=== PATIENT | female | born 1950 | race American Indian/Alaskan Native ===

== ENCOUNTER 2017-01-13 11:57 | Outpatient (CLI) | payer MEDICARE, OTHER ==
--- NOTE | 2017-01-16 08:23 | Mammography Report ---
BILATERAL DIGITAL SCREENING MAMMOGRAM WITH CAD: 01/13/17 11:57:00 CLINICAL: Routine screening.Breast cancer survivor status post right partial mastectomy , radiation therapy and chemotherapy. COMPARISON:03/24/15, 03/13/14 and 03/06/13 FINDINGS: The breasts are mostly fatty. Stable right upper postsurgical scar. However, a new right upper focal asymmetry and left upper inner calcifications require additional imaging. IMPRESSION: Right focal asymmetry and left calcifications requiring additional imaging. BI-RADS CATEGORY: 0--Needs Additional Imaging RECOMMENDATION: Recall for bilateral true lateral and spot magnification lateral and CC views and right breast ultrasound if needed. COMMENT: Patient follow-up letters are generated via our [employer] application.
== END 2017-01-13 11:58 | disposition home or self-care (01) ==
LOC: SPVWC 11:57
PROVIDERS: ATTEND Internal Medicine
DX: Z12.31 Encounter for screening mammogram for malignant neoplasm of breast (principal); Z90.11 Acquired absence of right breast and nipple
CPT/HCPCS: 77067; G0202

== ENCOUNTER 2017-02-17 12:46 | Outpatient (CLI) | payer MEDICARE, OTHER ==
--- NOTE | 2017-02-17 14:07 | Ultrasound Report ---
BILATERAL DIGITAL DIAGNOSTIC MAMMOGRAM and RIGHT BREAST ULTRASOUND: 02/17/17 12:46:00 CLINICAL: Recall to evaluate a right asymmetry and left calcifications. COMPARISON:01/13/17 screening FINDINGS: A right lateralmedial and bilateral spot magnification views were performed. An irregular 6 mm right upper outer mass persists on all views. A group of left upper inner calcifications has suspicious morphology with no layering on the lateral view. There are greater than ten pleomorphic calcifications with no associated mass or architectural distortion. Ultrasound of the upper outer right breast was performed and demonstrated a solid irregular hypoechoic mass at 11 o'clock 9 cm from the nipple. It measures 5 x 5 x 4 mm and produces shadowing. IMPRESSION: A suspicious 5 mm right breast mass at 11 o'clock 9 cm from the nippleand a group of left upper inner suspicious calcifications. BI-RADS CATEGORY: 4--Suspicious RECOMMENDATION: Ultrasound guided needle core biopsy of the right breast and stereotactic needle biopsy of the left breast. These would have to be done on different days and the right ultrasound biopsy should be done first. I discussed the findings and the recommendation for bilateral needle core biopsies with the patient at the time of the examination. ACR BI-RADS MAMMOGRAPHIC CODES: 0 = Needs additional imaging evaluation; 1 = Negative; 2 = Benign; 3 = Probably benign; 4 = Suspicious; 5 = Malignant; 6 = Known biopsy-proven malignancy COMMENT: 1. Dense breast tissue, i.e., adenosis, fibrocystic changes, etc., may obscure an underlying neoplasm. 2. Approximately 10% of cancers are not detected with mammography. 3. A negative mammography report should not delay biopsy if a clinically suspicious mass is present. COMMENT: Patient follow-up letters are generated via our [employer] application.
== END 2017-02-17 12:47 | disposition home or self-care (01) ==
LOC: SPVWC 12:46
PROVIDERS: ATTEND Internal Medicine
DX: N63.11 Unspecified lump in the right breast, upper outer quadrant (principal); R92.1 Mammographic calcification found on diagnostic imaging of breast
CPT/HCPCS: 76642; G0204; 77066

== ENCOUNTER 2017-03-07 09:02 | Outpatient (CLI) | payer MEDICARE, OTHER ==
--- NOTE | 2017-03-07 11:05 | Mammography Report ---
RIGHT DIGITAL DIAGNOSTIC MAMMOGRAM: 03/07/17 09:02:00 CLINICAL: For clip placement immediately status post ultrasound biopsy. COMPARISON:02/17/17 FINDINGS: A biopsy clip is now identified at 12 o'clock and correlates with the previously described lesion. The lesion is less prominent than on prior imaging. IMPRESSION: Concordant clip placement status post ultrasound biopsy. BI-RADS CATEGORY: 4--Suspicious Pathology pending.
--- NOTE | 2017-03-07 12:30 | Ultrasound Report ---
VACUUM ASSISTED ULTRASOUND GUIDED NEEDLE CORE BIOPSY WITH CLIP PLACEMENT RIGHT BREAST: 03/07/17 09:02:00 CLINICAL: Right breast mass. COMPARISON :02/17/17 FINDINGS: The procedure was explained to the patient and informed consent was obtained. Ultrasound demonstrated the previously described 5 mm mass at 11 o'clock 9 cm from the nipple. The skin was prepped with Betadine and anesthetized with 1% lidocaine. Vacuum-assisted needle core biopsy was performed through a small dermatotomy using ultrasound guidance, 2% lidocaine with epinephrine for deep anesthesia and a 13-gauge Mammotome Elite biopsy probe. Multiple cores were obtained and placed in formalin. A hydro-berta clip was deployed within the lesion. Hemostasis was achieved with minimal pressure and a sterile dressing was applied. The patient tolerated the procedure well and there were no apparent complications. A two view mammogram demonstrated concordant clip placement. The patient left the department in good condition and was given instructions for wound care and follow up. IMPRESSION: Uncomplicated vacuum-assisted ultrasound core biopsy and clip placement right breast.
== END 2017-03-07 09:03 | disposition home or self-care (01) ==
LOC: SPVWC 09:02
PROVIDERS: ATTEND Internal Medicine
DX: C50.911 Malignant neoplasm of unspecified site of right female breast (principal)
CPT/HCPCS: 19083; 88305; G0206; 88342; 88361

== ENCOUNTER 2017-03-14 09:11 | Outpatient (CLI) | payer MEDICARE, OTHER ==
--- NOTE | 2017-03-14 11:16 | Mammography Report ---
LEFT DIGITAL DIAGNOSTIC MAMMOGRAM: 03/14/17 09:11:00 CLINICAL: For clip placement immediately status post stereotactic biopsy. COMPARISON:03/07/17 and 02/17/17 FINDINGS: A biopsy clip is now identified in the upper inner quadrant and it correlates with the site of the targeted calcifications. IMPRESSION: Concordant clip placement status post stereotactic biopsy. BI-RADS CATEGORY: 4--Suspicious Pathology pending.
--- NOTE | 2017-03-14 12:46 | Mammography Report ---
STEREOTACTIC VACUUM ASSISTED BIOPSY WITH CLIP PLACEMENT LEFT BREAST: 03/14/17 09:11:00 CLINICAL: A single group of suspicious calcifications. COMPARISON:03/07/17 FINDINGS: Consent for the procedure was obtained. The group of upper calcifications was targeted with stereotactic guidance. The skin was prepped with Betadine and anesthetized with 1% lidocaine. 2% lidocaine with epinephrine was injected for deeper anesthesia. 8 gauge Mammotome biopsy was performed from a CC from above approach through a small dermatotomy. Prefire and post-fire images demonstrated satisfactory positioning of the probe. Samples were obtained around the clock face. A specimen radiograph confirmed satisfactory sampling with removal of inside sales account representative calcifications. A clip was placed at the biopsy site and the placement was confirmed with a radiograph. The probe was removed and hemostasis was achieved with minimal pressure. A sterile dressing was applied. The patient tolerated the procedure well and there were no apparent complications. A 2 view mammogram demonstrated concordant position of the biopsy clip. IMPRESSION: Uncomplicated stereotactic biopsy with clip placement left breast.
== END 2017-03-14 09:12 | disposition home or self-care (01) ==
LOC: SPVWC 09:11
PROVIDERS: ATTEND Internal Medicine
DX: N64.89 Other specified disorders of breast (principal); R92.1 Mammographic calcification found on diagnostic imaging of breast
CPT/HCPCS: 19081; 88305; A4648; G0206

== ENCOUNTER 2017-04-04 13:22 | Outpatient (CLI) | payer MEDICARE, OTHER ==
--- NOTE | 2017-04-07 12:14 | Magnetic Resonance Report ---
BILATERAL BREAST MRI WITHOUT AND WITH CONTRAST: 04/04/17 13:22:00 CLINICAL: Newly diagnosed recurrent right breast cancer. Status post right ultrasound guided needle biopsy of a 5 mm mass on 03/07/17. Status post right partial mastectomy with radiation therapy and chemotherapy over ten years ago. Status post left stereotactic biopsy for benign calcifications 03/14/17. COMPARISON:01/13/17 bilateral mammogram. TECHNIQUE: Axial 1.0-mm T1 without, axial high resolution 2.0-mm T2 and axial 1.0-mm dynamic Vibrant high-resolution postcontrast T1 fat saturation sequences on a 1.5 [place] magnet. The examination was performed with an 8 channel dedicated [place] breast coil. Post processing with CAD and subtraction was performed on an [employer] workstation. 14.0 cc of Multihance was injected without incident via a 22-gauge left hand vein INT for the contrast portion of the exam. Consent was obtained prior to the administration of the contrast. FINDINGS: Right: Minimal background parenchymal enhancement. The known cancer is an irregular enhancing mass in the upper inner quadrant approximately 10 cm from the nipple measuring 6.0 x 6.0 x 5.0 mm. It demonstrates heterogeneous enhancement with mixed kinetics, 129% peak enhancement, 89% type I persistent, 10% type II plateau and 1% type III washout enhancement. Lesion 2 is an oval enhancing mass in the upper-inner quadrant 12.7 cm from the nipple measuring 5.9 x 5.2 x 3.4 mm. It demonstrates heterogeneous enhancement with mixed kinetics, 1-2% peak enhancement, 71% type I, 29% type II and or percent type III washout. It is approximately 1 cm posterior to the known cancer. Irregular enhancing scar extends posterior to both of these lesions. The largest portion of scar measures approximately 2.3 x 0.9 x 0.6 cm. A third heterogeneous enhancing suspicious mass at 11:30 o'clock 13.4 cm from the nipple and approximately 3 cm from the known cancer measures 2.6 x 2.2 x 0.8 cm. It has stellate morphology with greater enhancement peripherally. The lesion is hypointense on T1 with no central fat. It demonstrates heterogeneous enhancement with mixed kinetics, 182% peak enhancement, 83% type I persistent, 15% type II plateau and 2% type III washout. No suspicious left axillary or left internal mammary lymph nodes. Left: Minimal background parenchymal enhancement. No mass or suspicious enhancement. Mild enhancement at the recent stereotactic biopsy site in the upper inner quadrant. No suspicious left axillary or left internal mammary lymph nodes. IMPRESSION: Newly diagnosed recurrent right breast cancer and two additional suspicious lesions in the right breast. Both would be amenable to MRI guided needle biopsy. However, targeted ultrasound may also be helpful for directing biopsies. Negative left breast. No suspicious lymph nodes. RIGHT BI-RADS 6 -- Known Cancer LEFT BI-RADS 2 -- Benign
== END 2017-04-04 13:23 | disposition home or self-care (01) ==
LOC: SPVIMAG 13:22
PROVIDERS: ATTEND Surgery
DX: C50.411 Malignant neoplasm of upper-outer quadrant of right female breast (principal)
CPT/HCPCS: A9577; C8908; 77059

== ENCOUNTER 2017-04-12 08:20 | Outpatient (CLI) | payer MEDICARE, OTHER ==
--- NOTE | 2017-04-21 12:01 | Mammography Report ---
BONE DEXA:04/12/17 08:20:00 CLINICAL: Postmenopausal.Newly diagnosed recurrent right breast cancer. TECHNIQUE: Two site bone DEXA performed on an Hologic scanner. FINDINGS: The average BMD of the lumbar spine L1-L4 is 0.898g/cm squared with a T-score of -2.3 and a Z-score of on a 0.2. The average BMD of the left hip is 0.909g/cm squared with a T-score of -0.8 and a Z-score of +0.3. IMPRESSION: 1. WHO classification: Osteopenia with increased fracture risk based on lumbar spine measurements. 2. WHO classification: Normal with average fracture risk based on left hip measurements. RECOMMENDATION: Clinical correlation and routine screening. DEFINITIONS: BMD = Bone Mineral Density T-score = BMD related to mean peak bone mass of young adult (mean expressed in Standard Deviation) Z-score = Age matched BMD expressed in SD World Health Organization (WHO) Diagnostic Criteria Normal T-score > -1 SD Osteopenia T-score between -1 and -2.4 SD Osteoporosis T-score -2.5 SD or below NOTE: BMD is not the only risk factor for fracture. One should also consider factors such as the patient's age, risk of falling, previous osteoporotic fracture, family history of osteoporotic fractures, current smoker, and low body weight. Z-scores are not calculated if >80 years of age.
== END 2017-04-12 08:21 | disposition home or self-care (01) ==
LOC: SPVWC 08:20
PROVIDERS: ATTEND Internal Medicine Hematology & Oncology
DX: M85.88 Other specified disorders of bone density and structure, other site (principal); C50.911 Malignant neoplasm of unspecified site of right female breast; Z78.0 Asymptomatic menopausal state
CPT/HCPCS: 77080

== ENCOUNTER 2017-11-21 09:35 | Outpatient (CLI) | payer MEDICARE, OTHER ==
--- NOTE | 2017-11-21 10:24 | Mammography Report ---
LEFT DIGITAL DIAGNOSTIC MAMMOGRAM with CAD: 11/21/17 09:35:00 CLINICAL: History of right breast cancer and status post right mastectomy within the last year. Status post left stereotactic biopsy of benign calcifications 03/14/17. COMPARISON:03/14/17 FINDINGS: The breast is mostly fatty. Upper inner biopsy clip. A few stable benign calcifications are superior to the stereotactic biopsy site.No mass, architectural distortion or suspicious calcifications. IMPRESSION: No mammographic evidence of malignancy. BI-RADS CATEGORY: 2 - - Benign RECOMMENDATION: Routine mammographic screening in one year. ACR BI-RADS MAMMOGRAPHIC CODES: 0 = Needs additional imaging evaluation; 1 = Negative; 2 = Benign; 3 = Probably benign; 4 = Suspicious; 5 = Malignant; 6 = Known biopsy-proven malignancy COMMENT: 1. Dense breast tissue, i.e., adenosis, fibrocystic changes, etc., may obscure an underlying neoplasm. 2. Approximately 10% of cancers are not detected with mammography. 3. A negative mammography report should not delay biopsy if a clinically suspicious mass is present. COMMENT: Patient follow-up letters are generated by our [employer] application.
== END 2017-11-21 09:36 | disposition home or self-care (01) ==
LOC: SPVWC 09:35
PROVIDERS: ATTEND Surgery
DX: Z08 Encounter for follow-up examination after completed treatment for malignant neoplasm (principal); E78.00 Pure hypercholesterolemia, unspecified; I48.91 Unspecified atrial fibrillation; I10 Essential (primary) hypertension; J45.909 Unspecified asthma, uncomplicated; K21.9 Gastro-esophageal reflux disease without esophagitis; E11.9 Type 2 diabetes mellitus without complications; E66.9 Obesity, unspecified; M19.90 Unspecified osteoarthritis, unspecified site; Z90.710 Acquired absence of both cervix and uterus; Z90.12 Acquired absence of left breast and nipple

== ENCOUNTER 2018-11-27 10:07 | Outpatient (CLI) | payer MEDICARE, OTHER ==
--- NOTE | 2018-11-27 11:05 | Mammography Report ---
LEFT DIGITAL SCREENING MAMMOGRAM WITH CAD INDICATION: Routine screening mammography. Breast cancer survivor status post right mastectomy. TECHNIQUE: Digital left 2D mammography was obtained in the craniocaudal and mediolateral oblique pro jections. This examination was interpreted with the benefit of Computer-Aided Detection analysis. COMPARISON: 10/22 2014 FINDINGS: Breast Density: The breast is heterogeneously dense, which may obscure small masses and it is signifi cantly smaller compared to the last exam. No mass, suspicious architectural distortion or suspicious calcifications. Benign upper inner postsur gical scar. Skin thickening of the breast. IMPRESSION:No mammographic evidence of malignancy. Benign postsurgical changes in the left breast. BI-RADS Category 2: Benign. No mammographic evidence of malignancy. Recommend routine screening ma mmography in one year. A "normal" or negative report should not discourage follow up or biopsy of a clinically significant f inding. A written summary of these findings will be mailed to the patient. The patient will be entered into a mammography reporting system which will generate a reminder letter for the patient's next appointmen t at the appropriate interval. The [employer] recommends yearly mammograms starting at age 40 and continuing as l savage as a woman is in good health. Breast MRI is recommended for women with an approximate 20-25% or greater lifetime risk of breast cancer, including women with a strong family history of breast or ova pritesh cancer or who have been treated for Hodgkin's disease. Signer Name: Lenin Younger MD Signed: 11/27/2018 11:00 AM Workstation Name: [id number]
== END 2018-11-27 10:08 | disposition home or self-care (01) ==
LOC: SPVWC 10:07
PROVIDERS: ATTEND Surgery
DX: Z12.31 Encounter for screening mammogram for malignant neoplasm of breast (principal); I10 Essential (primary) hypertension; E11.9 Type 2 diabetes mellitus without complications; E78.00 Pure hypercholesterolemia, unspecified; J45.909 Unspecified asthma, uncomplicated; E66.9 Obesity, unspecified

== ENCOUNTER 2019-04-15 13:12 | Outpatient (CLI) | payer MEDICARE, OTHER ==
--- NOTE | 2019-04-16 09:13 | Mammography Report ---
BONE DEXA CLINICAL Postmenopausal COMPARISON: 04/12/2017 for the spine and 04/18/2017 for the hip. A 04/12/2017 hip exam was started but n ot completed and should be disregarded for further comparisons. TECHNIQUE: 2 site bone DEXA performed on an [employer] scanner. FINDINGS: The average BMD of the lumbar spine L1-L4 is 0.892g/cm squared with a T score of -2.3 and a Z score o f -0.1. This compares to 0.898g/cm squared on the last exam and represents a -0.6 % change from the p revious baseline. The average BMD of the left hip is 0.900 g/cm squared with a T score of -0.8and a Z score of +0.3. Th is compares to 0.909 g/cm squared on the 04/18/2017 exam and represents a -1.0 % change from the previ ous baseline. IMPRESSION: 1. WHO classification: Osteopenia with increased fracture risk based on spine measurements. 2. WHO classification Normal with average fracture risk based on left hip measurements. 3. A modest decline in both hip and spine BMD compared to previous baseline exams. RECOMMENDATION: Clinical correlation and routine screening. Definitions: BMD equal bone mineral density T score = BMD related to peak bone mass of young adult ([place] expressed an standard deviation) Z score = age-matched BMD expressed in SD World health organization (WHO) diagnostic criteria Normal T score greater than equal to 1 standard deviation Osteopenia T score between -1 and -2.4 standard deviation Osteoporosis T score -2.5 standard deviation or below. Note: BMD is not the only risk factor for fracture; also consider factors such as the patient's age, risk of falling, previous osteoporotic fracture, family history of osteoporotic fractures, current sm oker and low body weight. Z scores are not calculated if greater than 80 years of age. Signer Name: Lenin Younger MD Signed: 04/16/2019 9:09 AM Workstation Name: [id number]
== END 2019-04-15 13:13 | disposition home or self-care (01) ==
LOC: SPVWC 13:12
PROVIDERS: ATTEND Internal Medicine Hematology & Oncology
DX: M85.89 Other specified disorders of bone density and structure, multiple sites (principal); N95.9 Unspecified menopausal and perimenopausal disorder
CPT/HCPCS: 77080

== ENCOUNTER 2019-12-03 09:23 | Outpatient (CLI) | payer MEDICARE, OTHER ==
--- NOTE | 2019-12-03 10:30 | Mammography Report ---
DIGITAL SCREENING MAMMOGRAM WITH CAD, 12/03/2019 INDICATION: Routine screening mammography. TECHNIQUE: Digital left 2D mammography was obtained in the craniocaudal and mediolateral oblique pro jections. This examination was interpreted with the benefit of Computer-Aided Detection analysis. COMPARISON: Prior mammograms 11/27/2018 FINDINGS: Breast Density: There are scattered areas of fibroglandular density. There is no evidence of dominant mass or suspicious calcifications in the left breast. There is stabl e benign postsurgical change and skin thickening in the left breast. There has been no significant ch radha compared with the prior examination. IMPRESSION: Follow up recommendation: Routine yearly BI-RADS Category 2: Benign. A "normal" or negative report should not discourage follow up or biopsy of a clinically significant f inding. A written summary of these findings will be mailed to the patient. The patient will be entered into a mammography reporting system which will generate a reminder letter for the patient's next appointmen t at the appropriate interval. The [employer] recommends yearly mammograms starting at age 40 and continuing as l savage as a woman is in good health. Breast MRI is recommended for women with an approximate 20-25% or greater lifetime risk of breast cancer, including women with a strong family history of breast or ova pritesh cancer or who have been treated for Hodgkin's disease. Signer Name: Jenae Staton MD Signed: 12/03/2019 10:26 AM Workstation Name: [id number]
== END 2019-12-03 09:24 | disposition home or self-care (01) ==
LOC: SPVWC 09:23
PROVIDERS: ATTEND Surgery
DX: Z12.31 Encounter for screening mammogram for malignant neoplasm of breast (principal)
CPT/HCPCS: 77067

== ENCOUNTER 2020-12-08 10:14 | Outpatient (CLI) | payer MEDICARE, OTHER ==
--- NOTE | 2020-12-08 12:05 | Mammography Report ---
DIGITAL SCREENING MAMMOGRAM WITH CAD, 12/08/2020 CLINICAL INFORMATION / INDICATION: Routine screening mammography. SCREENING MAMMO Z12.31 TECHNIQUE: Digital left 2D mammography was obtained in the craniocaudal and mediolateral oblique pro jections. This examination was interpreted with the benefit of Computer-Aided Detection analysis. COMPARISON: 12/03/2019, 11/27/2018 FINDINGS: Breast Density: There are scattered areas of fibroglandular density. Postreduction changes are noted in the left breast. There is prominent appearing lymph node left axilla seen only in the MLO view. IMPRESSION: There is prominent appearing is noted in the left axilla. Further evaluation is recommend ed Follow up recommendation: Ultrasound BI-RADS Category 0: Incomplete. Needs additional imaging evaluation and/or prior mammograms for rashmi murcia. A "normal" or negative report should not discourage follow up or biopsy of a clinically significant f inding. A written summary of these findings will be mailed to the patient. The patient will be entered into a mammography reporting system which will generate a reminder letter for the patient's next appointmen t at the appropriate interval. The [employer] recommends yearly mammograms starting at age 40 and continuing as l savage as a woman is in good health. Breast MRI is recommended for women with an approximate 20-25% or greater lifetime risk of breast cancer, including women with a strong family history of breast or ova pritesh cancer or who have been treated for Hodgkin's disease. Signer Name: Papi Holley MD Signed: 12/08/2020 12:01 PM Workstation Name: [id number]
== END 2020-12-08 10:15 | disposition home or self-care (01) ==
LOC: SPVWC 10:14
PROVIDERS: ATTEND Surgery
DX: Z12.31 Encounter for screening mammogram for malignant neoplasm of breast (principal); N64.89 Other specified disorders of breast; R59.0 Localized enlarged lymph nodes

== ENCOUNTER 2021-07-07 10:27 | Outpatient (CLI) | payer MEDICARE, OTHER ==
--- NOTE | 2021-07-07 12:08 | Mammography Report ---
DEXA BONE DENSITY SCAN INDICATION / CLINICAL INFORMATION: OTHER DISORDERS OF BONE DENSITY AND STRUCTURE, MULTIPLE SITES. 70 years Female COMPARISON: 04/15/2019 LUMBAR SPINE, L1-L4: - Bone mineral density (BMD) = 0.691 g/cm2. - T-score = -2.7 - Change (%) since most recent prior (if available): -4.4 LEFT HIP, TOTAL : - Bone mineral density (BMD) = 0.826 g/cm2. - T-score = -1.3 (previously -0.8). IMPRESSION: 1. WHO Classification: Osteoporosis. Fracture Risk: High. 2. 10-Year Fracture Risk (FRAX) = Major Osteoporotic Not reported.% / Hip: Not reported.% FRAX generally not reported for patients with normal or osteoporotic BMD, in elt-[id number] katelyn ents younger than age 50, or in patients undergoing pharmacotherapy BMD Reporting Guidelines (ISCD, 2015) BMD Reporting in Postmenopausal Women and in Men Age 50 and Older - T-scores are preferred. - The WHO densitometric classification is applicable. BMD Reporting in Females Prior to Menopause and in Males Younger Than Age 50 - Z-scores, not T-scores, are preferred. This is particularly important in children. - A Z-score of -2.0 or lower is defined as below the expected range for age, and a Z-score above -2.0 is within the expected range for age. - Osteoporosis cannot be diagnosed in men under age 50 on the basis of BMD alone. - The WHO diagnostic criteria may be applied to women in the menopausal transition. http://www.iscd.org/official-positions/5535-rohy-ekuglhdc-positions-adult/ Signer Name: Benoit Tracey MD Signed: 07/07/2021 12:04 PM Workstation Name: [id number]
== END 2021-07-07 10:28 | disposition home or self-care (01) ==
LOC: SPVWC 10:27
PROVIDERS: ATTEND Internal Medicine Hematology & Oncology
DX: M81.0 Age-related osteoporosis without current pathological fracture (principal); M85.89 Other specified disorders of bone density and structure, multiple sites
CPT/HCPCS: 77080